=== PATIENT | female | born 1970 | race Caucasian/White ===

== ENCOUNTER → 2025-01-25 | Outpatient (CLI) | payer OTHER, SELFPAY ==
[2025-01-25 16:43] LABS: Absolute Lymphocyte Count 1.46 X10^3/uL (0.83-4.51); Absolute Neutrophil Count 6.4 X10^3/uL (2.0-7.7); Basophil# 0.04 X10^3/uL; Basophil% 0.5 % (0-1); Eosinophil# 0.08 X10^3/uL; Eosinophils% 0.9 % (0-5); Hematocrit 47.4 % (37-47); Hemoglobin 16.3 g/dL (12.0-15.0); Lymphocyte # 1.46 X10^3/ul (0.83-4.51); Lymphocyte % 17.2 % (19-41); Mean Corp Hgb Conc 34.4 g/dL (32-36); Mean Corpuscular Hgb 31.6 pg (27.0-32.0); Mean Corpuscular Volume 91.9 fL (81-99); Mean Platelet Vol. 10.7 fl (6.2-12.0); Monocyte# 0.47 X10^3/uL; Monocyte% 5.5 % (0-10); NRBC Flagged by Analyzer 0 % (0-5); Neutrophil # 6.43 X10^3/uL (2.7-7.7); Neutrophil % 75.5 % (47-70); Platelet Count 274 K/mm3 (150-450); RBC Distribution Width CV 12.9 % (11.6-14.6); RBC Distribution Width SD 43.3 fl (35.1-43.9); Red Blood Count 5.16 M/mm3 (4.2-5.4); White Blood Count 8.5 K/mm3 (4.4-11.0)
[2025-01-25 17:27] LABS: Hepatitis C Antibody Nonreactive (Nonreactive)
[2025-01-25 18:02] LABS: Cholesterol 214 mg/dL (<=200); High Density Lipoprotein 44 mg/dL; Low Density Lipoprotein Calc. 152 mg/dL; Thyroid Stim Hormone (TSH) 0.648 uIU/mL (0.300-4.200); Triglycerides 87 mg/dL; Very Low Density Lipoprotein 17 mg/dL (5-40); Vitamin D,25 Hydroxy 33.4 ng/mL (30-100); cholesterol:hdl ratio screen 4.84
[2025-01-25 19:58] LABS: ALB/GLOB Ratio 1.4 RATIO (0.9-2.4); AST(SGOT) 30 U/L (<=31); Alanine Aminotransfer ALT/SGPT 24 U/L (<=34); Albumin, Serum 4.7 g/dL (3.5-5.0); Alkaline Phosphatase 85 U/L (35-104); Anion Gap 14 (5-15); BUN 12 mg/dL (4-19); BUN/Creat Ratio 13.8 RATIO (10-20); Calcium,Total 9.9 mg/dL (7.6-11.0); Carbon Dioxide 23.7 mmol/L (21.0-32.0); Chloride 101 mmol/L (98-108); Creatinine, Serum 0.86 mg/dL (0.70-1.20); EST Glomerular Filtration Rate 80 (>60); Globulin 3.3 g/dL (2.2-4.2); Glucose 91 mg/dL (70-99); Potassium 4.7 mmol/L (3.3-5.1); Sodium Level 139 mmol/L (133-145); Total Bilirubin 0.44 mg/dL (0.00-1.30)
== END | disposition home or self-care (01) ==
LOC: LAB 16:03
PROVIDERS: PCP Family Medicine Geriatric Medicine; Referring Provider Family Medicine Geriatric Medicine; Visit Provider Family Medicine Geriatric Medicine
DX: E78.5 Hyperlipidemia, unspecified (principal); Z13.89 Encounter for screening for other disorder; E55.9 Vitamin D deficiency, unspecified
CPT/HCPCS: 36415; 80053; 80061; 82306; 84443; 85025; 86803

== ENCOUNTER → 2025-02-14 | Outpatient (CLI) | payer OTHER, SELFPAY ==
--- NOTE | 2025-02-14 08:06 | BI_ITS ---
EXAM: SCRN MAMM (CAD)W/CHSATITY BILAT DATE: 02/14/2025 CLINICAL HISTORY: F, Age 54 y/o , SCREENING BREAST CANCER RISK ASSESSMENT: Has not been calculated. TECHNIQUE: Bilateral screening digital breast tomosynthesis with 2D and 3D images. Computer aided detection. COMPARISON: None. FINDINGS: TISSUE DENSITY: The breast tissue is almost entirely fatty.. Bilateral Breast Mammographic Findings: A 4 mm partially obscured isodense mass is seen in the inferior medial, far anterior aspect of the left breast. Further workup is indicated. A 2 mm density in the superior, middle 3rd aspect of the left breast is noted and requires additional workup. No suspicious masses, suspicious clustered microcalcifications, architectural distortion or secondary sign of malignancy is identified in the right breast. BI/SCRN MAMM (CAD)W/CHASTITY BILAT IMPRESSION: Right Breast: BIRADS 2 BENIGN FINDING. Left Breast: BIRADS 0 Incomplete: Need additional imaging evaluation and/or yusef or mammograms for comparison.. OVERALL FINAL ASSESSMENT: BIRADS 0 Incomplete: Need additional imaging evaluati on and/or prior mammograms for comparison. RECOMMENDATION: Incomplete: Need additional imaging evaluation and/or prior mammograms for comp arison. Patient should return for an LM view of the left breast as well as spot compression CC and spot compression MLO view of the left breast mass and density. An ultrasound may also be needed. A letter with findings and recommendations will be mailed to the patient. Reading Location: [id number]
== END | disposition home or self-care (01) ==
LOC: OPBI 08:05
PROVIDERS: PCP Family Medicine Geriatric Medicine; Referring Provider Family Medicine Geriatric Medicine; Visit Provider Family Medicine Geriatric Medicine
DX: Z12.31 Encounter for screening mammogram for malignant neoplasm of breast (principal)
CPT/HCPCS: 77063; 77067

== ENCOUNTER → 2025-02-22 | Outpatient (CLI) | payer OTHER, SELFPAY ==
--- NOTE | 2025-02-22 09:25 | BI_ITS ---
PROCEDURE: DIAG MAMM W/CAD, UNILAT REASON FOR EXAM: F, Age 54 y/o , DENSE MASS LEFT BREAST COMPARISON: Prior exam(s) dating back to February 14, 2025.. TECHNIQUE: Left diagnostic digital breast tomosynthesis with 2D and 3D images. Compression spot views in the mediolateral oblique and craniocaudad projections were obtained. Computer aided detection. FINDINGS: TISSUE DENSITY: There are scattered areas of fibroglandular density. No abnormality is seen on this examination. Sonographic correlation recommended for further evaluation. BI/DIAG MAMM W/CAD, UNILAT IMPRESSION: No focal lesion is seen at this time. Sonographic correlation recommended for further evaluation. BI-RADS 0: INCOMPLETE - NEED ADDITIONAL IMAGING EVALUATION. Reading Location: [place] [id number]
--- NOTE | 2025-02-22 09:25 | US_ITS ---
PROCEDURE: BREAST LIMITED UNILATERAL 02/22/2025 REASON FOR EXAM: Abnormal screening mammogram. TECHNIQUE: Targeted left breast ultrasound. COMPARISON: Prior mammogram done earlier in the day. FINDINGS: Left breast ultrasound was targeted to the lower inner quadrant of the left breast.. The breast tissue appears sonographically normal. No cyst, solid mass, or suspicious shadowing. US/Breast Limited Unilateral IMPRESSION: Impression: No sonographic abnormality is seen. Routine annual mammographic fo llow-up recommended. Birads: BI-RADS 1: NEGATIVE. RECOMMEND ANNUAL MAMMOGRAPHIC SCREENING. Reading Location: [place] [id number]
== END | disposition home or self-care (01) ==
PROVIDERS: PCP Family Medicine Geriatric Medicine; Referring Provider Family Medicine Geriatric Medicine; Visit Provider Family Medicine Geriatric Medicine
DX: N63.20 Unspecified lump in the left breast, unspecified quadrant (principal)
CPT/HCPCS: 76642; 77065

== ENCOUNTER → 2025-08-30 | Outpatient (CLI) | payer OTHER, SELFPAY ==
--- OUTSIDE RECORDS SUMMARY | 2025-08-30 17:00 | XMS RPT_ITS | CCD ---
Author Organization [facility] Care Team Providers Care Alarm Adjuster Name Role Phone Walt DELGADO, Dr. Brad Rivera Primary Care Provider Walt DELGADO, Dr. Brad Rivera Attending Provider Walt DELGADO, Dr. Brad Rivera Referring Provider WaltBrad lundy Chi Primary Care Unavailable Walt, Brad Chi Attending Unavailable Walt, Brad Chi Referring Unavailable Walt, Brad Chi Primary Care Unavailable Walt, Brad Chi Attending Unavailable Walt, Brad Chi Referring Unavailable Walt, Brad Chi Attending Unavailable Walt, Brad Chi Referring Unavailable Walt, Brad Chi Primary Care Unavailable Problems Problem Classification Problem Date Documented Da te Episodic/Chronic Disorders of lipid metabolism (1 source) Hyperlipidemia, unspecified; Translations: [Hyperlipidemia, unspecified] Onset: 02-03-2025 Chronic Nonmalignant breast conditions (1 source) Unspecified lump in the left breast, unspecified quadrant; Translations: [Unspecified lump in the left breast, unspecified quadrant] Onset: 02-28-2025 Episodic Other screening for suspected conditions (not mental disorders or infectious disease) (1 source) Encounter for screening mammogram for malignant neoplasm of breast; Translations: [Encounter for screening mammogram for malignant neoplasm of breast] Onset: 02-18-2025 Episodic Results Test Name Value Interpretation Reference Range Facil ity Breast Limited Unilateralon 02-22-2025 Breast Limited Unilateral [facility] Imaging Services [address] [place], [place] [id number] Breast Limited Unilateral MR#: [id number] Acct: [id number] Name: SEAN MORALES Rep #: [id number] : 1970 F 54 From: Phillip kemp MD PCP: Dr. Brad Godoy MD Status: REG CLI Study: Breast Limited Unilateral Date of Exam: Exam# [id number] Ordering Dr: Brad Godoy MD PROCEDURE: BREAST LIMITED UNILATERAL 02/22/2025 REASON FOR EXAM: Abnormal screening mammogram. TECHNIQUE: Targeted left breast ultrasound. COMPARISON: Prior mammogram done earlier in the day. FINDINGS: Left breast ultrasound was targeted to the lower inner quadrant of the left breast.. The breast tissue appears sonographically normal. No cyst, solid mass, or suspicious shadowing. US/Breast Limited Unilateral IMPRESSION: Impression: No sonographic abnormality is seen. Routine annual mammographic follow-up recommended. Birads: BI-RADS 1: NEGATIVE. RECOMMEND ANNUAL MAMMOGRAPHIC SCREENING. Reading Location: [place] [address] CC: Dr. Brad Godoy MD Laborer Salvage: Signed Normal [facility] Breast imaging reportOrdered By: Phillip Jenkins on 02-22-2025 Study report [facility] Imaging Services [address] [place] [id number] DIAG MAMM W/CAD, UNILAT MR#: [id number] Acct: [id number] Name: SEAN MORALES Rep #: [id number] : 1970 F 54 From: Gopal Jenkins MD PCP: Dr. Brad Godoy MD Status: REG C Study:DIAG MAMM W/CAD, UNILAT Date of Exam: 02/22/25 Exam# [id number] Ordering Dr: Brad Godoy MD PROCEDURE: DIAG MAMM W/CAD, UNILAT REASON FOR EXAM: F, Age 54 y/o , DENSE MASS LEFT BREAST COMPARISON: Prior exam(s) dating back to February 14, 2025.. TECHNIQUE: Left diagnostic digital breast tomosynthesis with 2D and 3D images. Compressionspot views in the mediolateral oblique and craniocaudad projections were obtained. Computer aided detection. FINDINGS: TISSUE DENSITY: There are scattered areas of fibroglandular density. No abnormality is seen on this examination. Sonographic correlation recommendedfor further evaluation. BI/DIAG MAMM W/CAD, UNILAT IMPRESSION: No focal lesion is seen at this time. Sonographic correlation recommended for further evaluation. BI-RADS 0: INCOMPLETE - NEED ADDITIONAL IMAGING EVALUATION. Reading Location: [facility] CC: Dr. Brad Godoy MD ~ Laborer Salvage: Signed [facility] DIAG MAMM W/CAD, UNILATon DIAG MAMM W/CAD, UNILAT [facility] Imaging Services [address] [place] [address] DIAG MAMM W/CAD, UNILAT MR#: [id number] Acct: [id number] Name: SEAN MORALES Rep #: [id number] : 1970 F 54 From: Phillip kemp MD PCP: Dr. Brad Godoy MD Status: REG I Study: DIAG MAMM W/CAD, UNILAT Date of Exam: 02/22/25 Exam# [id number] Ordering Dr: Brad Godoy MD PROCEDURE: DIAG MAMM W/CAD, UNILAT REASON FOR EXAM: F, Age 54 y/o , DENSE MASS LEFT BREAST COMPARISON: Prior exam(s) dating back to February 14, 2025.. TECHNIQUE: Left diagnostic digital breast tomosynthesis with 2D and 3D images. Compression spot views in the mediolateral oblique and craniocaudad projections were obtained. Computer aided detection. FINDINGS: TISSUE DENSITY: There are scattered areas of fibroglandular density. No abnormality is seen on this examination. Sonographic correlation recommended for further evaluation. BI/DIAG MAMM W/CAD, UNILAT IMPRESSION: No focal lesion is seen at this time. Sonographic correlation recommended for further evaluation. BI-RADS 0: INCOMPLETE - NEED ADDITIONAL IMAGING EVALUATION. Reading Location: [facility] CC: Dr. Brad Godoy MD Laborer Salvage: Signed Normal [facility] Breast imaging reportOrdered By: Vanessa Jerome on 02-14-2025 Study report [facility] Imaging Services [address] [place], [place] [id number] SCRN MAMM (CAD)W/CHASTITY BILAT MR#: [id number] Acct: [id number] Name: SEAN MORALES Rep #: [id number] : 1970 F 54 From: Damien Jerome DO PCP: Dr. Brad Godoy MD Status: RADHA IBARRA Study:SCRN MAMM (CAD)W/CHASTITY BILAT Date of Exa m: 02/14/25 Exam# [id number] Ordering Dr: Brad Godoy MD EXAM: SCRN MAMM (CAD)W/CHASTITY BILAT DATE: 02/14/2025 CLINICAL HISTORY: F, Age 54 y/o , SCREENING BREAST CANCER RISK ASSESSMENT: Has not been calculated. TECHNIQUE: Bilateral screening digital breast tomosynthesis with 2D and 3D images. Computeraided detection. COMPARISON: None. FINDINGS: TISSUE DENSITY: The breast tissue is almost entirely fatty.. Bilateral Breast Mammographic Findings: A 4 mm partially obscured isodense mass is seen in the inferior medial, far anterior aspect of the left breast. Further workup is indicated. A 2 mm density in the superior, middle 3rd aspect of the left breast is noted and requires additional workup. No suspicious masses, suspicious clustered microcalcifications , architectural distortion or secondary sign of malignancy is identified in the right breast. BI/SCRN MAMM (CAD)W/CHASTITY BILAT IMPRESSION: Right Breast: BIRADS 2 BENIGN FINDING. Left Breast: BIRADS 0 Incomplete: Need additional imaging evaluation and/or prior mammograms for comparison.. OVERALL FINAL ASSESSMENT: BIRADS 0 Incomplete: Need additional imaging evaluation and/or prior mammograms for comparison. RECOMMENDATION: Incomplete: Need additional imaging evaluation and/or prior mammograms for comparison. Patient should return for an LM view of the left breast as well as spot compression CC and spot compression MLO view of the left breast mass and density. An ultrasound may also be needed. A letter with findings and recommendations will be mailed to the patient. Reading Location: [id number] CC: Dr. Brad Godoy MD ~ Laborer Salvage: Signed [facility] SCRN MAMM (CAD)W/CHASTITY BILATo n 02-14-2025 SCRN MAMM (CAD)W/CHASTITY BILAT [facility] Imaging Services [address] [place], [place] [address] SCRN MAMM (CAD)W/CHASTITY BILAT MR#: [id number] Acct: [id number] Name: SEAN MORALES Rep #: [id number] : 1970 F 54 From: Vanessa Nur PCP: Dr. Brad Godoy MD Status: REG CLI Study: SCRN MAMM (CAD)W/CHASTITY BILAT Date of Exam: 06/03 Exam# [id number] Ordering Dr: Brad Godoy MD EXAM: SCRN MAMM (CAD)W/CHASTITY BILAT DATE: 02/14/2025 CLINICAL HISTORY: F, Age 54 y/o , SCREENING BREAST CANCER RISK ASSESSMENT: Has not been calculated. TECHNIQUE: Bilateral screening digital breast tomosynthesis with 2D and 3D images. Computer aided detection. COMPARISON: None. FINDINGS: TISSUE DENSITY: The breast tissue is almost entirely fatty.. Bilateral Breast Mammographic Findings: A 4 mm partially obscured isodense mass is seen in the inferior medial, far anterior aspect of the left breast. Further workup is indicated. A 2 mm density in the superior, middle 3rd aspect of the left breast is noted and requires additional workup. No suspicious masses, suspicious clustered microcalcifications , architectural distortion or secondary sign of malignancy is identified in the right breast. BI/SCRN MAMM (CAD)W/CHASTITY BILAT IMPRESSION: Right Breast: BIRADS 2 BENIGN FINDING. Left Breast: BIRADS 0 Incomplete: Need additional imaging evaluation and/or prior mammograms for comparison.. OVERALL FINAL ASSESSMENT: BIRADS 0 Incomplete: Need additional imaging evaluation and/or prior mammograms for comparison. RECOMMENDATION: Incomplete: Need additional imaging evaluation and/or prior mammograms for comparison. Patient should return for an LM view of the left breast as well as spot compression CC and spot compression MLO view of the left breast mass and density. An ultrasound may also be needed. A letter with findings and recommendations will be mailed to the patient. Reading Location: [id number] CC: Dr. Brad Godoy MD Laborer Salvage: Signed Normal [facility] Absolute neutrophil countOrd ered By: Brad Godoy on 01-25-2025 Neutrophils (Bld) [#/Vol] 6.4 10*3/uL 2.0-7.7 [facility] Anion gap in Serum or Plasma Ordered By: Brad Godoy on 01-25-2025 Anion gap [Moles/Vol] 14 mmol/L 5-15 [facility] BUN/creatinine ratioOrdered By: Brad Godoy on 01-25-2025 Urea nitrogen/Creatinine [Mass ratio] 13.8 mg/mg 10-20 [facility] Basophil percentageOrdered B y: Brad Godoy on 01-25-2025 Basophils/100 WBC (Bld) 0.5 % 0-[address] [facility] Bilirubin, totalOrdered By: Brad Godoy on 01-25-2025 Bilirubin [Mass/Vol] 0.44 mg/dL 0.00-1.30 [facility] CBC W/Diff, Automatedon 01-08 Absolute Lymph 1.46 X10 3/uL Normal 0.83-4.51 [facility] Comment on above: Performed By: #### L 500.4050, L3890.6301, L501.9520, L500.4100, L100.0100, L506.1001 #### [facility] Laboratory [address] [facility] [place], [address] Absolute Neut 6.4 X10 3/uL Normal 2.0-7.7 [facility] Comment on above: Performed By: #### L 500.4050, L3890.6301, L501.9520, L500.4100, L100.0100, L506.1001 #### [facility] [address] [place], [address] Basophils/100 WBC (Bld) 0.5 % Normal 0-[address] [facility] Comment on above: Performed By: #### L 500.4050, L3890.6301, L501.9520, L500.4100, L100.0100, L506.1001 #### [facility] [address] [place], [address] Eosinophils/100 WBC (Bld) 0.9 % Normal 0-5 [facility] Comment on above: Performed By: #### L 500.4050, L3890.6301, L501.9520, L500.4100, L100.0100, L506.1001 #### [facility] [address] [place], [address] Erythrocyte distribution width (RBC) [Ratio] 12.9 % Normal 11.6-14.6 [facility] Comment on above: Performed By: #### L 500.4050, L3890.6301, L501.9520, L500.4100, L100.0100, L506.1001 #### [facility] [address] [place], [address] Hematocrit (Bld) [Volume fraction] 47.4 % High 37-47 [facility] Comment on above: Performed By: #### L 500.4050, L3890.6301, L501.9520, L500.4100, L100.0100, L506.1001 #### [facility] [address] [place], [address] Hemoglobin (Bld) [Mass/Vol] 16.3 g/dL High 12.0-15.0 [facility] Comment on above: Performed By: #### L 500.4050, L3890.6301, L501.9520, L500.4100, L100.0100, L506.1001 #### [facility] [address] [place], [address] IG% 0.400 Normal 0.0-0.9 [facility] Comment on above: Result Comment: IG% - Immature Granulocytes (promyelocytes, myelocytes and metamyelocytes) > 1% indicates that a LEFT SHIFT is Present. Performed By: #### L 500.4050, L3890.6301, L501.9520, L500.4100, L100.0100, L506.1001 #### [facility] [address] [place], [address] Lymphocytes/100 WBC (Bld) 17.2 % Low 19-41 [facility] Comment on above: Performed By: #### L 500.4050, L3890.6301, L501.9520, L500.4100, L100.0100, L506.1001 #### [facility] [address] [place], [address] MCH (RBC) [Entitic mass] 31.6 pg Normal 27.0-32.0 [facility] Comment on above: Performed By: #### L 500.4050, L3890.6301, L501.9520, L500.4100, L100.0100, L506.1001 #### [facility] [address] [place], [address] MCHC (RBC) [Mass/Vol] 34.4 g/dL Normal 32-36 [facility] Comment on above: Performed By: #### L 500.4050, L3890.6301, L501.9520, L500.4100, L100.0100, L506.1001 #### [facility] [address] [place], [address] MCV (RBC) [Entitic vol] 91.9 fL Normal 81-[address] [facility] Comment on above: Performed By: #### L 500.4050, L3890.6301, L501.9520, L500.4100, L100.0100, L506.1001 #### [facility] [address] [place], [address] Monocytes/100 WBC (Bld) 5.5 % Normal 0-[address] [facility] Comment on above: Performed By: #### L 500.4050, L3890.6301, L501.9520, L500.4100, L100.0100, L506.1001 #### [facility] [address] [place], [address] Neutrophils/100 WBC (Bld) 75.5 % High 47-70 [facility] Comment on above: Performed By: #### L 500.4050, L3890.6301, L501.9520, L500.4100, L100.0100, L506.1001 #### [facility] [address] [place], [address] Nucleated RBC (Bld) [#/Vol] 0 10*3/uL Normal 0-5 [facility] Comment on above: Performed By: #### L 500.4050, L3890.6301, L501.9520, L500.4100, L100.0100, L506.1001 #### [facility] [address] [place], [address] Platelet mean volume (Bld) [Entitic vol] 10.7 fL Normal 6.2-12.0 [facility] Comment on above: Performed By: #### L 500.4050, L3890.6301, L501.9520, L500.4100, L100.0100, L506.1001 #### [facility] [address] [place], [address] Platelets (Bld) [#/Vol] 274 10*3/uL Normal 150-450 [facility] Comment on above: Performed By: #### L 500.4050, L3890.6301, L501.9520, L500.4100, L100.0100, L506.1001 #### [facility] [address] [place], [address] RBC (Bld) [#/Vol] 5.16 10*6/uL Normal 4.2-5.4 [facility] Comment on above: Performed By: #### L 500.4050, L3890.6301, L501.9520, L500.4100, L100.0100, L506.1001 #### [facility] [address] [place], [place], [address] RDW SD 43.3 fl Normal 35.1-43.9 [facility] Comment on above: Performed By: #### L 500.4050, L3890.6301, L501.9520, L500.4100, L100.0100, L506.1001 #### [facility] [address] [place], [place], [address] WBC (Bld) [#/Vol] 8.5 10*3/uL Normal 4.4-11.0 [facility] Comment on above: Performed By: #### L 500.4050, L3890.6301, L501.9520, L500.4100, L100.0100, L506.1001 #### [facility] [address] [place], [place], [address] Calculated very low density lipoprotein (VLDL) cholesterol measurementOrdered By: Brad Godoy on 01-25-2025 VLDL Cholesterol 17 mg/dL 5-40 [facility] Carbon dioxide, total [Moles /volume] in Central venous bloodOrdered By: Brad Godoy on 01-25-2025 CO2 [Moles/Vol] 23.7 mmol/L 21.0-32.0 [facility] Chloride assayOrdered By: Gurinder Godoy on 01-25-2025 Chloride [Moles/Vol] 101 mmol/L 98-108 [facility] Comprehensive Metabolic Prof ilon 01-25-2025 Albumin [Mass/Vol] 4.7 g/dL Normal 3.5-5.0 [facility] Comment on above: Performed By: #### L 500.4050, L3890.6301, L501.9520, L500.4100, L100.0100, L506.1001 #### [facility] [address] [place], [address] Albumin/Globulin [Mass ratio] 1.4 {ratio} Normal 0.9-2.4 [facility] Comment on above: Performed By: #### L 500.4050, L3890.6301, L501.9520, L500.4100, L100.0100, L506.1001 #### [facility] [address] [place], [address] ALK PHOS 85 U/L Normal 35-104 [facility] Comment on above: Performed By: #### L 500.4050, L3890.6301, L501.9520, L500.4100, L100.0100, L506.1001 #### [facility] [address] [place], [address] ALT [Catalytic activity/Vol] 24 U/L Normal <=34 [facility] Comment on above: Performed By: #### L 500.4050, L3890.6301, L501.9520, L500.4100, L100.0100, L506.1001 #### [facility] [address] [place], [address] AST [Catalytic activity/Vol] 30 U/L Normal <=31 [facility] Comment on above: Result Comment: Hemo lysis present, Results??could be affected. ?? Performed By: #### L 500.4050, L3890.6301, L501.9520, L500.4100, L100.0100, L506.1001 #### [facility] [address] [place], [address] Bilirubin [Mass/Vol] 0.44 mg/dL Normal 0.00-1.30 [facility] Comment on above: Performed By: #### L 500.4050, L3890.6301, L501.9520, L500.4100, L100.0100, L506.1001 #### [facility] [address] [place], [address] BUN/CRE 13.8 RATIO Normal 10-20 [facility] Comment on above: Performed By: #### L 500.4050, L3890.6301, L501.9520, L500.4100, L100.0100, L506.1001 #### [facility] [address] [place], [address] Calcium [Mass/Vol] 9.9 mg/dL Normal 7.6-11.0 [facility] Comment on above: Performed By: #### L 500.4050, L3890.6301, L501.9520, L500.4100, L100.0100, L506.1001 #### [facility] [address] [place], [address] Chloride [Moles/Vol] 101 mmol/L Normal 98-108 [facility] Comment on above: Performed By: #### L 500.4050, L3890.6301, L501.9520, L500.4100, L100.0100, L506.1001 #### [facility] [address] [place], [address] CO2 [Moles/Vol] 23.7 mmol/L Normal 21.0-32.0 [facility] Comment on above: Performed By: #### L 500.4050, L3890.6301, L501.9520, L500.4100, L100.0100, L506.1001 #### [facility] [address] [place], [address] Creatinine [Mass/Vol] 0.86 mg/dL Normal 0.70-1.20 [facility] Comment on above: Performed By: #### L 500.4050, L3890.6301, L501.9520, L500.4100, L100.0100, L506.1001 #### [facility] [address] [place], [address] GAP 14 Normal 5-15 [facility] Comment on above: Performed By: #### L 500.4050, L3890.6301, L501.9520, L500.4100, L100.0100, L506.1001 #### [facility] [address] [place], [address] GFR/1.73 sq M.predicted among non-blacks MDRD (S/P/Bld) [Vol rate/Area] 80 mL/min/{1.73_m2} Normal >60 [facility] Comment on above: Result Comment: mL/m in/1.73m2 CKD-EPI Creatinine Equation (2020) Performed By: #### L 500.4050, L3890.6301, L501.9520, L500.4100, L100.0100, L506.1001 #### [facility] [address] [place], [address] Globulin (S) [Mass/Vol] 3.3 g/dL Normal 2.2-4.2 [facility] Comment on above: Performed By: #### L 500.4050, L3890.6301, L501.9520, L500.4100, L100.0100, L506.1001 #### [facility] [address] [place], [address] Glucose [Mass/Vol] 91 mg/dL Normal 70-99 [facility] Comment on above: Performed By: #### L 500.4050, L3890.6301, L501.9520, L500.4100, L100.0100, L506.1001 #### [facility] [address] [place], [address] Potassium [Moles/Vol] 4.7 mmol/L Normal 3.3-5.1 [facility] Comment on above: Result Comment: Hemo lysis present, Results??could be affected. ?? Performed By: #### L 500.4050, L3890.6301, L501.9520, L500.4100, L100.0100, L506.1001 #### [facility] [address] [place], [address] Sodium [Moles/Vol] 139 mmol/L Normal 133-145 [facility] Comment on above: Performed By: #### L 500.4050, L3890.6301, L501.9520, L500.4100, L100.0100, L506.1001 #### [facility] [address] [place], [address] T PROT 8.0 g/dL Normal 5.9-8.4 [facility] Comment on above: Performed By: #### L 500.4050, L3890.6301, L501.9520, L500.4100, L100.0100, L506.1001 #### [facility] [address] [place], [address] Urea nitrogen [Mass/Vol] 12 mg/dL Normal 4-19 [facility] Comment on above: Performed By: #### L 500.4050, L3890.6301, L501.9520, L500.4100, L100.0100, L506.1001 #### [facility] [address] [place], [address] Eosinophil percentageOrdered By: Brad Walt on 01-25-2025 Eosinophils/100 WBC (Bld) 0.9 % 0-5 [facility] Erythrocyte distribution wid th ratioOrdered By: Brad Godoy on 01-25-2025 Erythrocyte distribution width (RBC) [Ratio] 12.9 % 11.6-14.6 [facility] Erythrocyte distribution wid th standard deviationOrdered By: Brad Godoy on 01-25-2025 Erythrocyte distribution width (RBC) [Entitic vol] 43.3 fL 35.1-43.9 [facility] GFR/1.73 sq M.predicted shannon g non-blacks MDRD (S/P/Bld) [Vol rate/Area]Ordered By: Brad Godoy on 01-25-2025 Estimated GFR (MDRD) Non-Af Amer 80 >60 [facility] Comment on above: mL/min/1.73m2 CKD-EP I Creatinine Equation (2020) Hematocrit Auto (Bld) [Volum e fraction]Ordered By: Brad Godoy on 01-25-2025 Hematocrit (Bld) [Volume fraction] 47.4 % High 37-47 [facility] Hemoglobin measurementOrdere d By: Brad Godoy on 01-25-2025 Hemoglobin (Bld) [Mass/Vol] 16.3 g/dL High 12.0-15.0 [facility] Hepatitis C antibodyOrdered By: Brad oGdoy on 01-25-2025 Hepatitis C Antibody Non-Reactive Nonreactive [facility] Comment on above: Reactive: Presumptiv e evidence of antibodies to HCV. Follow CDC recommendations for supplemental testing.Non-Reactive: Antibodies to HCV were not detected; does not exclude the possibility of exposure to HCVReactive Results are presumptive evidence of antibodies to HCV. Follow CDC recommendations for supplemental testing.Order confirmation testing: HCV Quant by PCR testing - HCVPCR #[id number] Non Reactive: < 0.8 Equivocal: >/= 0.8 to < 1.0 Reactive: >/= 1.0The CDC requires that a reactive/equivocal HCV antibody result be sent out for confirmation. HCV Quant by PCR testing. Immature granulocytes/100 WB C Auto (Bld)Ordered By: Brad Godoy on 01-25-2025 Immature granulocytes/100 WBC (Bld) 0.400 % 0.0-0.9 [facility] Comment on above: IG% - Immature Granu locytes (promyelocytes, myelocytes and metamyelocytes) > 1% indicates that a LEFT SHIFT is Present. L3890.6301on 01-25-2025 Hepatitis C Ab Non-Reactive Normal Nonreactive [facility] Comment on above: Result Comment: Reac tive: Presumptive evidence of antibodies to HCV. Follow CDC recommendations for supplemental testing. Non-Reactive: Antibodies to HCV were not detected; does not exclude the possibility of exposure to HCV Reactive Results are presumptive evidence of antibodies to HCV. Follow CDC recommendations for supplemental testing. Order confirmation testing: HCV Quant by PCR testing - HCVPCR lc#[id number] Non Reactive: < 0.8 Equivocal: >/= 0.8 to < 1.0 Reactive: >/= 1.0 The CDC requires that a reactive/equivocal HCV antibody result be sent out for confirmation. HCV Quant by PCR testing. Performed By: #### L 500.4050, L3890.6301, L501.9520, L500.4100, L100.0100, L506.1001 #### [facility] [address] [facility] [place], [address] L506.1001on 01-25-2025 Vitamin D 25-OH 33.4 ng/mL Normal 30-100 [facility] Comment on above: Result Comment: Lisa min D Status Deficiency: <20 ng/mL (50nmol/L) Insufficiency: 20-30 ng/mL (50-75 nmol/L) Sufficiency: 30-100 ng/mL (75-250 nmol/L) Toxicity: >100 ng/mL (>250 nmol/L) Performed By: #### L 500.4050, L3890.6301, L501.9520, L500.4100, L100.0100, L506.1001 #### [facility] [address] [facility] [place], [address] LDL calc ser/plasOrdered By: Brad Godoy on 01-25-2025 LDL Cholesterol, Calculated 152 mg/dL [facility] Comment on above: Ohyzgzczhz=279-794 m g/dL & Higher Vdlb=253 mg/dL or greater Laboratory - Chemistry and C hemistry - challengeOrdered By: Brad Godoy on 01-25-2025 AST [Catalytic activity/Vol] 30 U/L <32 [facility] Comment on above: Hemolysis present, R esults could be affected. Lipid Profileon 01-25-2025 CHOL:HDL 4.84 Normal [facility] Comment on above: Performed By: #### L 500.4050, L3890.6301, L501.9520, L500.4100, L100.0100, L506.1001 #### [facility] [address] [place], [address] Cholesterol [Mass/Vol] 214 mg/dL High <=200 [facility] Comment on above: Result Comment: Chol esterol level, Desirable <200 mg/dL Borderline high cholesterol 200-239 mg/dL High cholesterol >=240 mg/dL Recommendations of the NCEP Adult Treatment Panel for the following risk-cutoff thresholds for the [place] population. Performed By: #### L 500.4050, L3890.6301, L501.9520, L500.4100, L100.0100, L506.1001 #### [facility] [address] [place], [address] Cholesterol in HDL [Mass/Vol] 44 mg/dL Normal [facility] Comment on above: Result Comment: Trina onal Cholesterol Education Program (NCEP) guidelines: <40 mg/dL: Low HDL-cholesterol (major risk factor for CHD) >= 60 mg/dL: High HDL-cholesterol (negative risk factor for CHD) HDL-cholesterol is affected by a number of factors, e.g. smoking, exercise, hormones, sex and age. Performed By: #### L 500.4050, L3890.6301, L501.9520, L500.4100, L100.0100, L506.1001 #### [facility] [address] [place], [address] Cholesterol in LDL [Mass/Vol] 152 mg/dL Normal [facility] Comment on above: Result Comment: Bord zteels=162-757 mg/dL Higher Cpdx=704 mg/dL or greater Performed By: #### L 500.4050, L3890.6301, L501.9520, L500.4100, L100.0100, L506.1001 #### [facility] [address] [place], [address] Cholesterol in VLDL [Mass/Vol] 17 mg/dL Normal 5-40 [facility] Comment on above: Performed By: #### L 500.4050, L3890.6301, L501.9520, L500.4100, L100.0100, L506.1001 #### [facility] [address] [place], [address] Triglyceride [Mass/Vol] 87 mg/dL Normal [facility] Comment on above: Result Comment: The drugs N-Acetylcysteine and Metamizole may falsely depress this assay. Normal range: <150 mg/dL Borderline High: 150-199 mg/dL High: 200-499 mg/dL Very High: >500 mg/dL Performed By: #### L 500.4050, L3890.6301, L501.9520, L500.4100, L100.0100, L506.1001 #### [facility] [address] [facility] [place], [place], [id number] Lymphocytes Auto (Unsp spec) [#/Vol]Ordered By: Brad Godoy on 01-25-2025 Lymphocytes (Bld) [#/Vol] 1.46 10*3/uL 0.83-4.51 [facility] Lymphocytes/100 WBC Auto (Un sp spec)Ordered By: Brad Godoy on 01-25-2025 Lymphocytes/100 WBC (Bld) 17.2 % Low 19-41 [facility] MCV (mean corpuscular volume ) determinationOrdered By: Brad Godoy 01-25-2025 MCV (RBC) [Entitic vol] 91.9 fL 81-99 [facility] Mean corpuscular hemoglobin (MCH) determinationOrdered By: Brad Godoy on 01-25-2025 MCH (RBC) [Entitic mass] 31.6 pg 27.0-32.0 [facility] Mean corpuscular hemoglobin concentration (MCHC) determinationOrdered By: Brad Godoy on 01-25-2025 MCHC (RBC) [Mass/Vol] 34.4 g/dL 32-36 [facility] Mean platelet volume determi nationOrdered By: Brad Godoy on 01-25-2025 Platelet mean volume (Bld) [Entitic vol] 10.7 fL 6.2-12.0 [facility] Monocyte percentageOrdered B y: Brad Godoy on 01-25-2025 Monocytes/100 WBC (Bld) 5.5 % 0-[address] [facility] Neutrophil percentageOrdered By: Brad Godoy on 01-25-2025 Neutrophils/100 WBC (Bld) 75.5 % High 47-70 [facility] Nucleated red blood cell per centageOrdered By: Brad Godoy on 01-25-2025 Nucleated RBC/100 WBC (Bld) [Ratio] 0 % 0-5 [facility] Platelet countOrdered By: Gurinder Godoy on 01-25-2025 Platelets (Bld) [#/Vol] 274 10*3/uL 150-450 [facility] Potassium (Unsp spec) [Mass/ Vol]Ordered By: Brad Godoy on 01-25-2025 Potassium [Moles/Vol] 4.7 mmol/L 3.3-5.1 [facility] Comment on above: Hemolysis present, R esults could be affected. RBC Auto (Bld) [#/Vol]Ordere d By: Brad Godoy on 01-25-2025 RBC (Bld) [#/Vol] 5.16 10*6/uL 4.2-5.4 [facility] Screening total cholesterol/ high density lipoprotein (HDL) cholesterol ratioOrdered By: Brad Godoy on 01-25-2025 Cholesterol.total/Choles terol in HDL [Mass ratio] 4.84 {ratio} [facility] Serum creatinine measurement (mass/volume)Ordered By: Brad Godoy on 01-25-2025 Creatinine [Mass/Vol] 0.86 mg/dL 0.70-1.20 [facility] Serum globulin measurementOr dered By: Brad Godoy 01-25-2025 Globulin (S) [Mass/Vol] 3.3 g/dL 2.2-4.[address] [facility] Serum glucose measurement (m ass/volume)Ordered By: Brad Godoy on 01-25-2025 Glucose [Mass/Vol] 91 mg/dL 70-99 [facility] Serum or plasma alanine leigh otransferase (ALT) measurementOrdered By: Brad Godoy 01-25-2025 ALT [Catalytic activity/Vol] 24 U/L <35 [facility] Serum or plasma albumin yuri urement (mass/volume)Ordered By: Brad Walt 01-25-2025 Albumin [Mass/Vol] 4.7 g/dL 3.5-5.0 [facility] Serum or plasma albumin/glob ulin mass ratioOrdered By: Brad Godoy 01-25-2025 Albumin/Globulin [Mass ratio] 1.4 {ratio} 0.9-2.4 [facility] Serum or plasma alkaline filiberto sphatase measurementOrdered By: Brad Godoy 01-25-2025 ALP [Catalytic activity/Vol] 85 U/L 35-104 [facility] Serum or plasma calcium yuri urement (mass/volume)Ordered By: Brad Walt 01-25-2025 Calcium [Mass/Vol] 9.9 mg/dL 7.6-11.0 [facility] Serum or plasma cholesterol in HDL measurement (mass/volume)Ordered By: Brad Godoy 01-25-2025 Cholesterol in HDL [Mass/Vol] 44 mg/dL >40 [facility] Comment on above: National Cholesterol Education Program (NCEP) guidelines:<40 mg/dL: Low HDL-cholesterol (major risk factor for CHD)>= 60 mg/dL: High HDL-cholesterol (negative risk factor for CHD)HDL-cholesterol is affected by a number of factors, e.g. smoking, exercise, hormones, sex and age. Serum or plasma cholesterol measurement (mass/volume)Ordered By: Brad Godoy 01-25-2025 Cholesterol [Mass/Vol] 214 mg/dL High <201 [facility] Comment on above: Cholesterol level, D esirable <200 mg/dLBorderline high cholesterol 200-239 mg/dLHigh cholesterol >=240 mg/dLRecommendations of the NCEP Adult Treatment Panel for the following risk-cutoff thresholds for the [place] population. Serum or plasma urea nitroge n measurement (mass/volume)Ordered By: Brad Walt 01-25-2025 Urea nitrogen [Mass/Vol] 12 mg/dL 4-19 [facility] Sodium levelOrdered By: Brad Walt 01-25-2025 Sodium [Moles/Vol] 139 mmol/L 133-145 [facility] TSH DL <= 0.005 mIU/L QnOrde red By: Brad Godoy on 01-25-2025 Thyroid Stimulating Hormone (TSH) 0.648 uIU/mL 0.300-4.200 [facility] Thyroid Stim Hormone (TSH)on 01-25-2025 TSH 0.648 uIU/mL Normal 0.300-4.200 [facility] Comment on above: Performed By: #### L 500.4050, L3890.6301, L501.9520, L500.4100, L100.0100, L506.1001 #### [facility] [address] [place], [address] Total proteinOrdered By: Brad Godoy on 01-25-2025 Protein [Mass/Vol] 8.0 g/dL 5.9-8.4 [facility] Triglycerides measurementOrd ered By: Brad Godoy on 01-25-2025 Triglyceride [Mass/Vol] 87 mg/dL <[address] [facility] Comment on above: The drugs N-Acetylcy steine and Metamizole may falsely depress this assay. Normal range: <150 mg/dLBorderline High: 150-199 mg/dLHigh: 200-499 mg/dLVery High: >500 mg/dL Vitamin D, 25-hydroxyOrdered By: Brad Godoy on 01-25-2025 Vitamin D 25-Hydroxy 33.4 ng/mL 30-100 [facility] Comment on above: Vitamin D StatusDefi ciency: <20 ng/mL (50nmol/L)Insufficiency: 20-30 ng/mL (50-75 nmol/L)Sufficiency: 30-100 ng/mL (75-250 nmol/L)Toxicity: >100 ng/mL (>250 nmol/L) White blood cell (WBC) count Ordered By: Brad Godoy on 01-25-2025 WBC (Bld) [#/Vol] 8.5 10*3/uL 4.4-11.0 [facility] Encounters Encounter Date Encounter Type Care Provider Facility Start: 02-22-2025 End: 02-22-[address] Brad Godoy MD Work Phone: [facility] Work Phone: Start: 02-22-2025 End: 02-22-[address] Brad Godoy MD -Outpatient Breast Imaging Work Phone: Start: 02-22-2025 End: 02-22-2025 ambulatory Brad Godoy Facility:[facility] Start: 02-14-2025 End: 02-14-[address] Brad Godoy MD Work Phone: [facility] Work Phone: Start: 02-14-2025 End: 02-14-[address] Brad Godoy MD -Outpatient Breast Imaging Work Phone: Start: 02-14-2025 End: 02-14-2025 ambulatory Brad Godoy Facility:[facility] Start: 01-25-2025 End: 01-25-[address] Brad Godoy MD Work Phone: [facility] Work Phone: Start: 01-25-2025 End: 01-25-[address] Brad Godoy MD -Laboratory Work Phone: Start: 01-25-2025 End: 01-25-2025 ambulatory Brad Godoy Facility:[facility] Procedures Date Procedure Procedure Detail Performing Clinician Start: 02-22-[address] Brad lundy MD Work Phone: Start: 02-22-[address] Brad Godoy MD Work Phone: Start: 02-14-2025 Screening mammography Dayna Godoy MD Work Phone: Payers Date Payer Category Payer Unknown [id number] 2025 Self-pay 2025 Unknown [id number] Unknown [id number] Unknown [id number] Unknown [id number] Social History Date Type Detail Facility Tobacco smoking stat [facility] Unknown if ever smoked [facility] Work Phone: Start: 02-03-2025 End: 02-28-2025 Sex Female (finding) [facility] Start: 1970 Sex Assigned At Female [facility] Radiology Diagnostic study note 02-22-2025 Note Date & Type Note Facility 02-22-2025 Radiology Diagnostic study note [facility] Imaging Services [address], [place] [address] Breast Limited Unilateral MR#: [id number] Acct: [id number] Name: SEAN MORALES Rep #: [id number] : 1970 F 54 From: Gopal Jenkins MD PCP: Dr. Brad Godoy MD Status: RADHA IBARRA Study:Breast Limited Unilateral Date of Exam: 02/22/25 Exam# [id number] Ordering Dr: Brad Godoy MD PROCEDURE: BREAST LIMITED UNILATERAL 02/22/2025 REASON FOR EXAM: Abnormal screening mammogram. TECHNIQUE: Targeted left breast ultrasound. COMPARISON: Prior mammogram done earlier in the day. FINDINGS: Left breast ultrasound was targeted to the lower inner quadrant of the left breast.. The breast tissue appears sonographically normal. No cyst, solid mass, or suspicious shadowing. US/Breast Limited Unilateral IMPRESSION: Impression: No sonographic abnormality is seen. Routine annual mammographic follow-up recommended. Birads: BI-RADS 1: NEGATIVE. RECOMMEND ANNUAL MAMMOGRAPHIC SCREENING. Reading Location: [place] [address] CC: Dr. Brad Godoy MD ~ [employer]: Signed [facility] Evaluation note Note Date & Type Note Facility Evaluation note No assessment information availa ble [facility] Work Phone: Reason for referral (narrative) Note Date & Type Note Facility Reason for referral (narrative) No reason for referral information available [facility] Work Phone: Chief Complaint and Reason for Visit Chief Complaint Admit Date SCREENING February 14, 2025 7:46 am Chief Complaint Admit Date SCREENING February 14, 2025 7:46 am LT BREAST ABN MAMM February 22, 2025 9:0 4am Summary Purpose Family History No Family History Records Found Advance Directives No Advanced Directives Records Found Additional Source Comments Care Teams (unrecognized sec tion and content) Team Status: Active Member Role Status Dates Dr. Brad Godoy MD Primary Care Provider Active Team Status: Inactive Member Role Status Dates Dr. Brad Godoy MD Primary Care Provider Active Start: January 25, 2025 End: January 25, 2025 Dr. Brad Godoy MD Attending Provider Active Start: January 25, 2025 End: January 25, 2025 Dr. Brad Godoy MD Referring Provider Active Start: January 25, 2025 End: January 25, 2025 Team Status: Inactive Member Role Status Dates Dr. Brad Godoy MD Primary Care Provider Active Start: February 14, 2025 End: February 14, 2025 Dr. Brad Godoy MD Attending Provider Active Start: February 14, 2025 End: February 14, 2025 Dr. Brad Godoy MD Referring Provider Active Start: February 14, 2025 End: February 14, 2025 Team Status: Inactive Member Role Status Dates Dr. Brad Godoy MD Primary Care Provider Active Start: February 22, 2025 End: February 22, 2025 Dr. Brad Godoy MD Attending Provider Active Start: February 22, 2025 End: February 22, 2025 Dr. Brad Godoy MD Referring Provider Active Start: February 22, 2025 End: February 22, 2025 Goals (unrecognized section and content) Goals may be documented in a n alternate sectionGoals may be documented in an alternate sectionGoals may be documented in an alternate section INFORMATION SOURCE (unrecogn ized section and content) DATE CREATED AUTHOR 02/28/2025 [facility] FOR RECORDS PERTAINING TO PATIENTS WHO ARE OR HAVE BEEN ENROLLED IN A CHEMICAL DEPENDENCY/SUBSTANCEABUSE PROGRAM, SOME INFORMATION MAY BE OMITTED. This clinical summary was aggregated from multiple sources. Caution should be exercised in using it in the provision of clinical care. This summary normalizes information from multiple sources, and as a consequence, information in this document may materially change the coding, format and clinical context of patient data. In addition, data may be omitted in some cases. CLINICAL DECISIONS SHOULD BE BASED ON THE PRIMARY CLINICAL RECORDS. [employer] [facility]. provides no warranty or guarantee of the accuracy or completeness of information in this document.
[2025-08-30 17:13] LABS: Hematocrit 46.5 % (37-47); Hemoglobin 16.1 g/dL (12.0-15.0); Immature Granulocytes Count 0.030 X10^3/uL (0.0-0.0); Mean Corp Hgb Conc 34.6 g/dL (32-36); Mean Corpuscular Volume 91.7 fL (81-99); Mean Platelet Vol. 10.6 fl (6.2-12.0); NRBC Flagged by Analyzer 0 % (0-5); Platelet Count 282 K/mm3 (150-450); RBC Distribution Width CV 12.9 % (11.6-14.6); RBC Distribution Width SD 42.7 fl (35.1-43.9); Red Blood Count 5.07 M/mm3 (4.2-5.4); White Blood Count 9.3 K/mm3 (4.4-11.0)
== END | disposition home or self-care (01) ==
PROVIDERS: PCP Family Medicine Geriatric Medicine; Referring Provider Family Medicine Geriatric Medicine; Visit Provider Family Medicine Geriatric Medicine
DX: R53.83 Other fatigue (principal); N39.0 Urinary tract infection, site not specified
CPT/HCPCS: 36415; 85025; 87086; 87088; 87186